=== PATIENT | female | born 1965 | race African-American/Black ===

== ENCOUNTER → 2020-07-30 | Day surgery (SDC) | payer OTHER ==
[~2020-07-30] MED LIST: AMARYL4 MG PO; ASPIRIN EC81 MG PO; COREG 3.125M3.125 MG PO; CRESTOR40 MG PO; JARDIANCE10 MG PO; LISINOPRIL-HCT1 EAC1 PO; OZEMPIC0.25 MG/0. IN; PERCOCET 5-3251 EACH PO; SINGULAIR10 MG PO; SYNJARDY 12.5-1 EAC1 PO; VENTOLIN HFA IN18 GM INH
[2020-07-30 08:54] LABS: BUN/CREAT RATIO (CALC) 36.4 RATIO; CREATININE 0.66 mg/dL (0.51-0.95); POTASSIUM 3.5 mmol/L (3.5-5.1)
--- NOTE | 2020-07-30 09:40 | NUR ---
DR. EDMONDS TALKS WITH PATIENT, DETERMINED TO CANCEL SURGERY TODAY UNTIL FURTHER CARDIAC WORKUP IS DONE. IV D/C AND PATIENT LEAVES FACILITY
== END | disposition home or self-care (01) ==
LOC: FAS 07:09
PROVIDERS: Anesthesiology
DX: R10.31 Right lower quadrant pain (principal); R10.813 Right lower quadrant abdominal tenderness; R14.2 Eructation; R19.7 Diarrhea, unspecified; R11.0 Nausea; G47.33 Obstructive sleep apnea (adult) (pediatric); K59.00 Constipation, unspecified; K82.8 Other specified diseases of gallbladder; K21.9 Gastro-esophageal reflux disease without esophagitis; I25.10 Atherosclerotic heart disease of native coronary artery without angina pectoris; E11.9 Type 2 diabetes mellitus without complications; Z87.19 Personal history of other diseases of the digestive system; Z95.5 Presence of coronary angioplasty implant and graft; Z79.899 Other long term (current) drug therapy; Z86.39 Personal history of other endocrine, nutritional and metabolic disease; Z87.42 Personal history of other diseases of the female genital tract; Z86.2 Personal history of diseases of the blood and blood-forming organs and certain disorders involving the immune mechanism; Z20.828 Contact with and (suspected) exposure to other viral communicable diseases; Z90.710 Acquired absence of both cervix and uterus; Z98.890 Other specified postprocedural states; Z95.818 Presence of other cardiac implants and grafts; Z87.891 Personal history of nicotine dependence; Z20.822 Contact with and (suspected) exposure to COVID-19
CPT/HCPCS: 36415; 80048; 82962; J7120

== ENCOUNTER → 2020-09-10 | Day surgery (SDC) | payer OTHER ==
[2020-09-10 07:54] LABS: ALBUMIN 3.3 g/dL (3.4-5.0); BILIRUBIN - TOTAL 0.7 mg/dL (0.2-1.0); BUN/CREAT RATIO (CALC) 27.9 RATIO; CREATININE 0.68 mg/dL (0.51-0.95); GLOBULIN (CALCULATION) 3.4 g/dL; POTASSIUM 3.4 mmol/L (3.5-5.1); TOTAL PROTEIN 6.7 g/dL (6.4-8.2)
== END | disposition home or self-care (01) ==
LOC: FAS 06:52
PROVIDERS: Surgery
DX: K81.1 Chronic cholecystitis (principal); K82.8 Other specified diseases of gallbladder; K76.0 Fatty (change of) liver, not elsewhere classified; K66.0 Peritoneal adhesions (postprocedural) (postinfection); K21.9 Gastro-esophageal reflux disease without esophagitis; I10 Essential (primary) hypertension; G47.30 Sleep apnea, unspecified; E78.00 Pure hypercholesterolemia, unspecified; J45.909 Unspecified asthma, uncomplicated; I25.10 Atherosclerotic heart disease of native coronary artery without angina pectoris; E11.9 Type 2 diabetes mellitus without complications; E78.5 Hyperlipidemia, unspecified; Z79.82 Long term (current) use of aspirin; Z79.84 Long term (current) use of oral hypoglycemic drugs; Z87.891 Personal history of nicotine dependence; Z95.5 Presence of coronary angioplasty implant and graft; Z99.89 Dependence on other enabling machines and devices
CPT/HCPCS: 36415; 80053; 82150; 82962; 83690; 93005; J0694; J1100; J1170; J1885; J2250; J2405; J2704; J2710; J3010; J7120